=== PATIENT | female | born 1990 | race Caucasian/White ===

== ENCOUNTER 2018-08-27 20:13 | Emergency (ER) | END 2018-08-27 23:05 | disposition home or self-care (01) ==

== ENCOUNTER 2018-12-20 20:17 | Emergency (ER) | payer OTHER ==
[~2018-12-20] VITALS: Wt 77.1 kg
[~2018-12-20 20:17] MED LIST: PHEN-538 PO; SULF1TAB31 PO
[2018-12-20 21:12] VITALS: BP 121/61; PULSE 77; RESP 18
--- NOTE | 2018-12-21 00:48 | ERD ---
ER Documentation Chief Complaint Chief Complaint COUGH, S/T X'S 2 DAYS HPI This is a 28-year-old female presents here in emergency department with complaints of cough and sore throat for about 2 days. Exposed to significant other who has the same symptoms and 2-year-old son who has the same symptoms. LMP: Today. A0. Denies headache, head injury, loss of consciousness, dizziness, neck pain, neck stiffness, difficulty swallowing, difficulty breathing lying flat, shoulder pain, chest pain, back pain, abdominal pain, nausea, vomiting, constipation, diarrhea, urinary symptoms, or possibility being , loss of bowel and bladder control, trauma, injury, falls, difficulty walking due to pain, numbness or tingling sensation, calf pain, recent travel, recent major surgery in the last 3 weeks, calf pain, recent long travel, recent exposure to any illness, recent antibiotic use in the last 3 months, fever, chills, seizures. Past medical history: Surgical history: x5. Social: Denies smoking, use of alcoholic beverages, use of illegal drugs. ROS All systems reviewed and are negative except as per history of present illness. Medications Home Meds Active Scripts Benzonatate* (Tessalon Perle*) 100 Mg Capsule, 100 MG PO Q8H PRN for COUGH, #15 CAP Prov:PASILABANBRIANAAR F 12/21/18 Ibuprofen* (Motrin*) 800 Mg Tab, 800 MG PO Q6H PRN for PAIN AND OR ELEVATED TEMP, #30 TAB Prov:PASILABANKLAR F 12/21/18 Azithromycin* (Zithromax*) 250 Mg Tablet, 250 MG PO .HazelPACK DIRECTED, #6 TAB TAKE 500 MG (2 TABS) THE FIRST DAY THEN 250 MG (1 TAB) DAYS 2-5 Prov:PASILABAN,KLAR F 12/21/18 Phenazopyridine Hcl* (Pyridium*) 200 Mg Tab, 200 MG PO TID PRN for URINARY PAIN, #6 TAB Prov:LISBET IZAGUIRRE MD 08/27/18 Sulfamethoxazole/Trimethoprim* (Bactrim Ds* Tablet) 1 Each Tablet, 1 TAB PO BID, #14 TAB Prov:LISBET IZAGUIRRE MD 08/27/18 Allergies Allergies: Coded Allergies: No Known Allergy (Unverified , 08/27/18) PMhx/Soc Medical and Surgical Hx: pt denies Medical Hx History of Surgery: Yes (C-SECT ) Hx Alcohol Use: No Hx Substance Use: No Hx Tobacco Use: Yes Smoking Status: Former smoker Physical Exam Vitals Physical Exam Const: No acute distress Head: Atraumatic Eyes: Normal Conjunctiva. Eyeballs are not sunken. No signs of severe dehydration. ENT: Normal External Ears, Nose and Mouth. Bilateral ears: TMs are not erythematous No bleeding. No discharge. No mastoid tenderness. No hearing loss. Nose: There is no frontal and maxillary tenderness to palpation. Throat: Uvula is in midline and non-displaced. Tonsils are + 1with no redness and no exudates. Tolerating secretions. Patent airway. Speaks full and clear sentences. Neck: Full range of motion. No meningismus. No nuchal rigidity. No signs of meningeal irritation. Resp: Clear to auscultation bilaterally. No accessory muscle use in breathing. Cardio: Regular rate and rhythm, no murmurs Abd: Soft, non tender, non distended. Normal bowel sounds. No abdominal tenderness. Skin: No petechiae or rashes. No vesicular lesion. No skin tenting. No signs of severe dehydration. Back: No midline or flank tenderness Ext: No cyanosis, or edema Neur: Awake and alert. No neurological deficits.. Psych: Normal Mood and Affect Procedures/MDM Diagnostic tests: Clinical exam. Treatment: Not applicable. Re-evaluation: Not applicable. Differential diagnosis I have low suspicion for sepsis, meningitis, mastoiditis, peritonsillar abscess, airway obstruction, bronchospasm, severe dehydration, pneumonia. Final diagnosis: Bronchitis. Sore throat. Prescription: Azithromycin. Motrin. Tessalon Perles. Follow-up with PCP in the next 24-48 hours. Come back here in the emergency department for any new symptoms or any worsening symptoms. All questions and concerns were answered. Patient and family members verbalized understanding and agreed with plan of care. Hemodynamically stable on discharge. Departure Diagnosis: Primary Impression: Cough Additional Impressions: Bronchitis Sore throat Condition: Stable Additional Instructions: Follow-up with PCP in the next 24-48 hours. Come back here in the emergency department for any new symptoms or any worsening symptoms. JULISA FRANKEL Dec 21, 2018 00:48
[2018-12-21] MEDS ORDERED: IBUP800T48 PO (01:02)
[2018-12-21] MEDS ORDERED: AZIT250T PO (01:02)
[2018-12-21] MEDS ORDERED: BENZ-6 PO (01:02)
== END 2018-12-21 01:40 | disposition home or self-care (01) ==
LOC: FTE 20:17
DX: J40 Bronchitis, not specified as acute or chronic (principal)
CPT/HCPCS: 99283